=== PATIENT | female | born 1955 | race Caucasian/White ===

== ENCOUNTER → 2018-08-16 | Outpatient (CLI) | payer BC ==
[2018-08-16 12:26] LABS: Basophils # (auto) 0.1 uL; Basophils % (auto) 1.1 % (0.0-2.0); Eosinophils # (auto) 0.2 uL; Eosinophils % (auto) 3.1 % (0.0-7.0); Hematocrit 40.5 % (36.0-46.0); Hemoglobin 13.3 g/dL (12.2-16.2); Lymphocytes # (auto) 2.3 uL; Lymphocytes % (auto) 30.5 % (10.0-50.0); Mean Corpuscular Hemoglobin 30.9 pg (28.0-32.0); Mean Corpuscular Hgb Conc. 32.7 g/dL (32.0-36.0); Mean Corpuscular Volume 94.3 fL (80.0-100.0); Monocytes # (auto) 0.7 uL; Monocytes % (auto) 9.3 % (0.0-12.0); Neutrophils # (auto) 4.2 uL; Nucleated Red Blood Cells % 0.1 %; Platelet Count (auto) 311 10^3/uL (140-450); Red Cell Distribution Width 13.5 % (11.8-14.3); White Blood Cell 7.5 10^3/uL (4.4-10.8)
[2018-08-16 12:32] LABS: Albumin 3.8 g/dL (3.4-5.0); Potassium 3.8 mmol/L (3.5-5.1)
[2018-08-16 12:33] LABS: Urine Blood TRACE /uL (Negative); Urine Specific Gravity 1.011 (1.001-1.035)
[2018-08-16 12:39] LABS: Free T4 (Free Thyroxine) 0.85 ng/dL (0.89-1.76)
[2018-08-16 12:41] LABS: BUN/Creatinine Ratio 21.8; Bilirubin, Total 0.7 mg/dL (0.2-1.0); Calcium 8.9 mg/dL (8.5-10.1); Total Protein 7.8 g/dL (6.4-8.2)
== END | disposition home or self-care (01) ==
LOC: LAB 09:10
PROVIDERS: ATTEND Internal Medicine Cardiovascular Disease
DX: Z00.01 Encounter for general adult medical examination with abnormal findings (principal); E03.9 Hypothyroidism, unspecified; E55.9 Vitamin D deficiency, unspecified; E11.9 Type 2 diabetes mellitus without complications; D51.9 Vitamin B12 deficiency anemia, unspecified; N39.0 Urinary tract infection, site not specified
CPT/HCPCS: 36415; 80053; 80061; 81003; 82306; 82607; 83036; 84439; 84443; 85025; 87086

== ENCOUNTER → 2020-04-18 | Outpatient (CLI) | payer OTHER ==
[2020-04-18 12:06] LABS: Basophils # (auto) 0.1 10 ^3/uL (0-0.2); Basophils % (auto) 1.8 % (0.0-2.0); Eosinophils # (auto) 0.3 10 ^3/uL (0-0.8); Eosinophils % (auto) 3.9 % (0.0-7.0); Hematocrit 39.4 % (36.0-46.0); Hemoglobin 12.9 g/dL (12.2-16.2); Lymphocytes # (auto) 2.3 10 ^3/uL (0.4-5.4); Lymphocytes % (auto) 35.4 % (10.0-50.0); Mean Corpuscular Hemoglobin 30.3 pg (28.0-32.0); Mean Corpuscular Hgb Conc. 32.9 g/dL (32.0-36.0); Mean Corpuscular Volume 92.1 fL (80.0-100.0); Monocytes # (auto) 0.6 10 ^3/uL (0-1.3); Monocytes % (auto) 8.7 % (0.0-12.0); Neutrophils # (auto) 3.2 10 ^3/uL (1.6-8.6); Neutrophils % (auto) 50.2 % (37.0-80.0); Platelet Count (auto) 262 10^3/uL (140-450); Red Blood Cells 4.28 10^6/uL (4.0-5.20); Red Cell Distribution Width 13.5 % (11.8-14.3); White Blood Cell 6.5 10^3/uL (4.4-10.8)
[2020-04-18 12:14] LABS: Potassium 4.2 mmol/L (3.5-5.1)
[2020-04-18 12:21] LABS: Albumin 3.7 g/dL (3.4-5.0); BUN/Creatinine Ratio 24.7; Bilirubin, Direct 0.2 mg/dL (0-0.2); Bilirubin, Total 0.6 mg/dL (0.2-1.0); Calcium 8.8 mg/dL (8.5-10.1); Total Protein 7.2 g/dL (6.4-8.2)
[2020-04-18 15:55] LABS: Urine Blood Negative /uL (Negative); Urine Specific Gravity 1.016 (1.001-1.035)
== END | disposition home or self-care (01) ==
LOC: LAB 10:28
PROVIDERS: ATTEND Internal Medicine Cardiovascular Disease
DX: Z00.00 Encounter for general adult medical examination without abnormal findings (principal); E03.9 Hypothyroidism, unspecified; K90.9 Intestinal malabsorption, unspecified; N39.0 Urinary tract infection, site not specified; D51.9 Vitamin B12 deficiency anemia, unspecified; I10 Essential (primary) hypertension; E11.9 Type 2 diabetes mellitus without complications; E55.9 Vitamin D deficiency, unspecified; K75.9 Inflammatory liver disease, unspecified; D64.9 Anemia, unspecified; E78.5 Hyperlipidemia, unspecified; E78.00 Pure hypercholesterolemia, unspecified; Z79.899 Other long term (current) drug therapy
CPT/HCPCS: 36415; 80048; 80061; 80076; 81003; 82306; 83036; 84443; 85025

== ENCOUNTER → 2020-05-28 | Outpatient (CLI) | payer OTHER | END | disposition home or self-care (01) | LOC: Rad HDHVI 08:13 | PROVIDERS: ATTEND Internal Medicine Cardiovascular Disease | DX: R06.02 Shortness of breath (principal); E78.5 Hyperlipidemia, unspecified; J44.9 Chronic obstructive pulmonary disease, unspecified | CPT/HCPCS: 93306 ==

== ENCOUNTER → 2022-09-05 | Outpatient (CLI) | payer OTHER | END | disposition home or self-care (01) | LOC: Rad HDHVI 14:35 | PROVIDERS: ATTEND Internal Medicine Cardiovascular Disease | DX: I08.3 Combined rheumatic disorders of mitral, aortic and tricuspid valves (principal); I10 Essential (primary) hypertension; R06.02 Shortness of breath | CPT/HCPCS: 93306 ==

== ENCOUNTER → 2023-10-26 | Outpatient (CLI) | payer BC ==
[~2023-10-26] VITALS: Ht 157.5 cm; Wt 93.0 kg
[~2023-10-26] MED LIST: ADENOSINE 78 MG in GIVE UN-DILUTED 0 ML IV ONE; ADENOSINE 90 MG/30 ML INJ IV ONE
== END | disposition home or self-care (01) ==
LOC: Rad HDHVI 10:02
PROVIDERS: ATTEND Internal Medicine Cardiovascular Disease
DX: I08.0 Rheumatic disorders of both mitral and aortic valves (principal); E78.5 Hyperlipidemia, unspecified; R06.02 Shortness of breath; I11.9 Hypertensive heart disease without heart failure; E78.00 Pure hypercholesterolemia, unspecified; I25.10 Atherosclerotic heart disease of native coronary artery without angina pectoris; I25.2 Old myocardial infarction; Z82.49 Family history of ischemic heart disease and other diseases of the circulatory system; Z79.899 Other long term (current) drug therapy
CPT/HCPCS: 78452; 93005; 93306; 96374; 96375; A9500; J0153

== ENCOUNTER → 2024-01-20 | Outpatient (CLI) | payer BC, MEDICARE ==
[~2024-01-20] MED LIST changes: -ADENOSINE 78 MG in GIVE UN-DILUTED 0 ML IV ONE; -ADENOSINE 90 MG/30 ML INJ IV ONE; +ALPR0.5T7 PO; +ATOR20TA50 PO; +CARV3.1240 PO; +CLOP75TA28 PO; +LEVO50TA7 PO; +PAR20T PO; +QUET1TAB11 PO
[2024-01-20 09:05] VITALS: BP 111/58; PULSE 69; RESP 18; O2SAT 95
[2024-01-20 09:14] VITALS: BP 122/71; PULSE 68; RESP 18; O2SAT 96
== END | disposition home or self-care (01) ==
LOC: Rad HDHVI 08:54
PROVIDERS: ATTEND Internal Medicine Cardiovascular Disease
DX: Z01.818 Encounter for other preprocedural examination (principal); I25.5 Ischemic cardiomyopathy; I25.10 Atherosclerotic heart disease of native coronary artery without angina pectoris
CPT/HCPCS: 93005; G0463

== ENCOUNTER 2024-01-21 06:48 | Day surgery (SDC) | payer BC, MEDICARE ==
[2024-01-20 11:52] LABS: Basophils # (auto) 0.1 10 ^3/uL (0-0.2); Basophils % (auto) 1.3 % (0.0-2.0); Eosinophils # (auto) 0.4 10 ^3/uL (0-0.8); Hematocrit 39.8 % (36.0-46.0); Hemoglobin 12.8 g/dL (12.2-16.2); Lymphocytes # (auto) 2.7 10 ^3/uL (0.4-5.4); Mean Corpuscular Hemoglobin 29.7 pg (28.0-32.0); Mean Corpuscular Hgb Conc. 32.3 g/dL (32.0-36.0); Mean Corpuscular Volume 92.1 fL (80.0-100.0); Monocytes # (auto) 0.8 10 ^3/uL (0-1.3); Monocytes % (auto) 9.4 % (0.0-12.0); Neutrophils # (auto) 4.7 10 ^3/uL (1.6-8.6); Neutrophils % (auto) 53.3 % (37.0-80.0); Nucleated Red Blood Cells % 0.1 %; Red Blood Cells 4.33 10^6/uL (4.0-5.20); White Blood Cell 8.8 10^3/uL (4.4-10.8)
[2024-01-20 12:05] LABS: INR 1.03 (0.9-1.15); Partial Thromboplastin Time 30.5 SEC (24.5-34.5); Prothrombin Time 10.9 sec (9.3-11.8)
[2024-01-20 12:55] LABS: Anion Gap 6 (5-15); Carbon Dioxide 29 mmol/L (20-30); Chloride 105 mmol/L (98-107); Potassium 4.6 mmol/L (3.5-5.1); Sodium 140 mmol/L (136-145)
[2024-01-20 12:56] LABS: Calcium 10.2 mg/dL (8.5-10.1)
[2024-01-20 13:01] LABS: BUN/Creatinine Ratio 17.8 (10.0-20.0); Blood Urea Nitrogen 16 mg/dL (9-23); Glucose 104 mg/dL (74-106)
[~2024-01-21] VITALS: Ht 157.5 cm; Wt 96.2 kg
[2024-01-21] VITALS (8 sets, daily range): BP systolic 106–181; BP diastolic 72–98; PULSE 72–87; RESP 12–19; TEMP 97.1; O2SAT 91–94
[2024-01-21] MEDS ORDERED: IODIXANOL 320MG/ML 100ML BTL IV ONE (07:35)
[2024-01-21] MEDS ORDERED: IOHEXOL 350 MG/ML 100ML IJ ONE (07:35)
[2024-01-21] MEDS ORDERED: HEPARIN IN NS 1000Units/500mL 1,500 ML ONE (07:35)
[2024-01-21] MEDS ORDERED: LIDOCAINE 2%HCL (LOCAL ANESTH.) INJ 20ML MDV ONE (07:35)
[2024-01-21] MEDS ORDERED: ANGIOMAX 250 MG VIAL IV ONE (08:19)
[2024-01-21] MEDS ORDERED: fentaNYL CITRATE 100 MCG/2 ML VL ONE (08:19)
[2024-01-21] MEDS ORDERED: SODIUM CHL 0.9% 0 ML ONE (08:19)
[2024-01-21] MEDS ORDERED: MIDAZOLAM HCL 2MG/2ML 2ml VIAL (1mg/ml) ONE (08:19)
[2024-01-21] MEDS: cloNIDine HCL 0.1 MG TAB PO ONE (10:26)
[2024-01-21] MEDS: cloNIDine HCL 0.1 MG TAB ONE (10:26)
== END 2024-01-21 11:43 | disposition home or self-care (01) ==
LOC: CATH 06:48
PROVIDERS: ATTEND Internal Medicine Cardiovascular Disease
DX: R06.02 Shortness of breath (principal); I42.0 Dilated cardiomyopathy; E66.9 Obesity, unspecified; I25.10 Atherosclerotic heart disease of native coronary artery without angina pectoris; Z79.01 Long term (current) use of anticoagulants; Z87.891 Personal history of nicotine dependence; Z79.899 Other long term (current) drug therapy; Z98.890 Other specified postprocedural states
CPT/HCPCS: 36415; 80048; 85025; 85610; 85730; 93458; C1760; C1894; J1644; J2250; J3010; J7040; Q9967; 99152

== ENCOUNTER → 2024-07-11 | Outpatient (CLI) | payer BC, MEDICARE ==
[~2024-07-11] MED LIST changes: +SEMA1INJ SC
[2024-07-11 10:20] VITALS: BP 143/69; PULSE 69; RESP 16; O2SAT 95
[2024-07-11 10:34] VITALS: BP 143/75; PULSE 71; RESP 16; O2SAT 95
== END | disposition home or self-care (01) ==
LOC: Rad HDHVI 10:11
PROVIDERS: ATTEND Internal Medicine Cardiovascular Disease
DX: Z01.818 Encounter for other preprocedural examination (principal); I42.0 Dilated cardiomyopathy; I50.20 Unspecified systolic (congestive) heart failure
CPT/HCPCS: 71046; 93005; G0463

== ENCOUNTER 2024-07-14 06:59 | Day surgery (SDC) | payer BC, MEDICARE ==
[2024-07-11 13:24] LABS: Basophils # (auto) 0.1 10 ^3/uL (0-0.2); Basophils % (auto) 1.1 % (0.0-2.0); Eosinophils # (auto) 0.4 10 ^3/uL (0-0.8); Eosinophils % (auto) 4.4 % (0.0-7.0); Hematocrit 39.7 % (36.0-46.0); Lymphocytes % (auto) 36.1 % (10.0-50.0); Mean Corpuscular Hemoglobin 30.1 pg (28.0-32.0); Mean Corpuscular Hgb Conc. 32.7 g/dL (32.0-36.0); Mean Corpuscular Volume 91.8 fL (80.0-100.0); Monocytes # (auto) 0.8 10 ^3/uL (0-1.3); Monocytes % (auto) 10.1 % (0.0-12.0); Neutrophils % (auto) 48.3 % (37.0-80.0); Platelet Count (auto) 310 10^3/uL (140-450); Red Blood Cells 4.33 10^6/uL (4.0-5.20); Red Cell Distribution Width 14.6 % (11.8-14.3); White Blood Cell 8.3 10^3/uL (4.4-10.8)
[2024-07-11 13:38] LABS: INR 0.98 (0.9-1.15); Partial Thromboplastin Time 28.9 SEC (24.5-34.5); Prothrombin Time 10.4 sec (9.3-11.8)
[2024-07-11 14:15] LABS: Anion Gap 3 (5-15); Calcium 9.8 mg/dL (8.7-10.4); Carbon Dioxide 32 mmol/L (20-31); Chloride 105 mmol/L (98-107); Potassium 4.7 mmol/L (3.5-5.1); Sodium 140 mmol/L (136-145)
[2024-07-11 14:21] LABS: BUN/Creatinine Ratio 22.5 (10.0-20.0); Blood Urea Nitrogen 23 mg/dL (9-23); Glucose 93 mg/dL (74-106)
[~2024-07-14] VITALS: Ht 157.5 cm; Wt 94.3 kg
[~2024-07-14 06:59] MED LIST changes: -CLOP75TA28 PO; -SEMA1INJ SC
[2024-07-14] MEDS ORDERED: IODIXANOL 320MG/ML 100ML BTL IV ONE (12:32)
[2024-07-14] MEDS ORDERED: HYDROmorphone HCL 2 MG/ML VL/or syr ONE (12:51)
[2024-07-14] MEDS ORDERED: VANCOMYCIN HCL 1000 MG VL ONE (13:18)
[2024-07-14] MEDS ORDERED: LIDOCAINE 2%HCL (LOCAL ANESTH.) INJ 20ML MDV ONE (13:19)
[2024-07-14] MEDS ORDERED: MIDAZOLAM HCL 2MG/2ML 2ml VIAL (1mg/ml) ONE (13:19)
[2024-07-14] MEDS ORDERED: VANCOMYCIN 1GM/200ML PREMIX 200 ML IV ONE (13:19)
--- NOTE | 2024-07-14 14:35 | DVH ---
EXAM: XY CHEST PORTABLE CLINICAL HISTORY: S/P PACEMAKER TECHNIQUE: Single view of the chest WID: COMPARISON: None FINDINGS: Lines and tubes: Left-sided triple lead AICD is in place . over the Chest: Mild cardiomegaly with pulmonary vascular congestion. No pleural effusion, pneumothorax, or consolidation. The osseous structures are grossly intact. IMPRESSION: 1. Placement of left-sided triple lead AICD. 2. No pneumothorax. 3. Mild cardiomegaly with mild pulmonary vascular congestion.
--- NOTE | 2024-07-14 15:04 | DVHOP ---
DATE OF SURGERY: 07/14/2024 BI-V AICD IMPLANTATION WITH THE LEFT BUNDLE PACING INDICATIONS: The patient with dilated cardiomyopathy, depressed left ventricular ejection fraction, now to undergo the above-mentioned procedure. Risks and benefits were explained. The patient had conscious sedation and also venography was performed as well. DESCRIPTION OF PROCEDURE: The patient was prepped and draped in a sterile condition. 1% Xylocaine used to anesthetize the left subclavicular region. Using a Cook needle, the left subclavian vein was engaged, using Seldinger technique, a guidewire was then appropriately positioned. Similarly, 3 separate guidewires appropriately positioned. Then, using a 10 blade linear incision was made using blunt dissection and electrocautery, pocket was then dissected out. Then, using a 10.5-H[place]er sheath, right ventricular shock lead then appropriately positioned. Threshold parameters were obtained, lead was secured to the chest wall using 0 Ethibond. Using a 7-[place] Konger sheath, left ventricular pacing was performed. There were no complications. The patient tolerated the procedure well. Lead was secured to the chest wall using 0 Ethibond. Using a 7-H[place] Konger sheath, right atrial active fixation lead then appropriately positioned. Threshold parameters were obtained, lead was secured to the chest wall using 0 Ethibond. Pocket was irrigated with vancomycin saline solution. Pocket was closed using 3-0 Monoderm subcutaneous sutures followed by 3-0 Monoderm subcuticular sutures. There were no complications. The patient tolerated the procedure well. The patient had MRI compatible AICD Bi-V implanted is device is Acticor 7HF-T, model #574122, serial #[id number]. LV lead is Solia S60, model #251114, serial #[id number]. Right ventricular lead is Plexa ProMRI SD 65-18, model #293012, serial #[id number]. Right atrial lead is Solia S45, model #922123, serial #[id number]. Threshold parameters atrium, P-wave amplitude of 2.1 millivolts, threshold 1.2 volts at 0.4 milliseconds pulse duration, pacing impedance of 560 ohms. Right ventricular shock lead, R-wave amplitude of 18.1 millivolts, threshold of 0.4 volts at 0.4 milliseconds pulse duration, pacing impedance of 599 ohms, shock impedance of 55 ohms. Left ventricular/left bundle machine adjuster leader, R-wave amplitude of 7.8 millivolts, threshold of 1.1 volt at 0.4 milliseconds pulse duration, pacing impedance of 697 ohms. CONCLUSION: The patient has successful implantation of left bundle branch/LV lead Bi-V AICD implantation. [employer] production operator MRI compatible system. Chad Ríos MD SA/ASAF TID: [id number] RECEIPT: [id number]
--- NOTE | 2024-07-14 16:19 | DVHDS ---
DATE OF DISCHARGE: 07/14/2024 DISCHARGE DIAGNOSES: The patient with heart failure, [place] Heart Classification 3, systolic heart failure, chronic on acute. The patient underwent successful Bi-V AICD implantation. HOSPITAL COURSE: Clinically, the patient is stable. No chest pain, no shortness of breath, no hematoma. The patient will be discharged home. Follow up with me in 1 week. Stable at the time of discharge. ACTIVITY: As instructed. DIET: Will be 2 gram sodium diet. Chad Ríos MD SA/ASAF TID: [id number] RECEIPT: [id number]
--- NOTE | 2024-07-15 09:25 | ECG ---
[facility] Test Date: 2024-07-14 Test Time: 14:30:46 Pat Name: ELIE GARNETT Department: Room: Gender: F Hemstitcher: NIKOLAS : 1955 Requested By: NARCISO ARMENTA Order Number: [id number] Reading MD: Amanda Martinez Measurements Intervals [place] Rate: 73 P: 39 MD: 200 QRS: 6 QRSD: 80 T: 149 QT: 394 QTc: 434 Interpretive Statements Normal sinus rhythm Cannot rule out Anterior infarct , age undetermined ST & T wave abnormality, consider inferolateral ischemia Electronically Signed On 07-15-2024 15:52:52 PST by Amanda Martinez Please click the below link to view image of tracing.
--- NOTE | 2024-07-15 10:05 | ECG ---
[facility] Test Date: 2024-07-14 Test Time: 14:28:02 Pat Name: ELIE GARNETT Department: Room: Gender: F Associate Teacher: NIKOLAS : 1955 Requested By: NARCISO ARMENTA Order Number: [id number] Reading MD: Amanda Martinez Measurements Intervals [place] Rate: 72 P: 49 FL: 158 QRS: 18 QRSD: 120 T: 72 QT: 388 QTc: 424 Interpretive Statements Demand pacemaker, interpretation is based on intrinsic rhythm Sinus rhythm with occasional premature ventricular complexes Cannot rule out Anterior infarct , age undetermined Electronically Signed On 07-15-2024 15:52:51 PST by Amanda Martinez Please click the below link to view image of tracing.
--- NOTE | 2024-07-17 17:37 | DVHHP ---
ADMIT DATE: 07/14/2024 HISTORY OF PRESENT ILLNESS: The patient with history of coronary artery disease, now with left ventricular ejection fraction less than 20%. Echocardiography shows an EF around 30% with left heart catheterization showed EF around 30% with normal coronary anatomy. The patient is now to undergo Bi-V AICD implantation because of dyssynchrony noted. Furthermore, left bundle branch pacing would also be initiated. Denies any fever or chills. Denies any history of CVA. No history of seizure disorder. No history of any movement disorder. No visual disturbances, no hearing deficit. No history of any GI symptoms such as dysphagia, diarrhea, constipation, irritable bowel syndrome or inflammatory bowel disease. Denies any diarrhea. Denies any liver disease. Denies any GI symptomatology. No hematemesis, hemoptysis, hematochezia or hematuria. Lungs are clear. No history of any COPD. No previous history of myocardial infarction. Extremities, no peripheral vascular disease has been documented. PHYSICAL EXAMINATION: VITAL SIGNS: Blood pressure is 148/58, pulse of 50 and regular, O2 saturation 94% on room air. HEENT: Pupils are reactive. Funduscopic exam is benign. Sclerae anicteric. No exudates noted. No AV nicking noted. Tympanic membranes are clear and negative for any infection. Oral mucosa moist. Posterior pharynx without any exudate. NECK: Supple. No nuchal rigidity. No cervical adenopathy, no supraclavicular adenopathy. He does not have any axillary adenopathy as well. Carotid pulses are 2+ symmetrical, normal upstroke and contour. No JVD appreciated. Thyroid is within normal limits. PULMONARY: Clear to auscultation. No rhonchi, no wheezes, no egophony. CARDIOVASCULAR: Regular rate. PMI is diffuse laterally and inferiorly displaced. ABDOMEN: Soft, nontender, normal bowel sounds. SKIN: Unremarkable. EXTREMITIES: 1+ edema. ASSESSMENT AND PLAN: Thus, the patient with systolic heart failure, dilated cardiomyopathy, now to undergo Bi-V AICD implantation. Further recommendations after the implantation. Chad Ríos MD SA/ASAF/ALEX TID: [id number] RECEIPT: [id number]
== END 2024-07-14 16:15 | disposition home or self-care (01) ==
LOC: CATH 06:59
PROVIDERS: ATTEND Internal Medicine Cardiovascular Disease
DX: I11.0 Hypertensive heart disease with heart failure (principal); I50.22 Chronic systolic (congestive) heart failure; I42.0 Dilated cardiomyopathy; I25.5 Ischemic cardiomyopathy; I25.10 Atherosclerotic heart disease of native coronary artery without angina pectoris; R00.1 Bradycardia, unspecified; Z88.0 Allergy status to penicillin; Z88.5 Allergy status to narcotic agent; Z88.6 Allergy status to analgesic agent
CPT/HCPCS: 33225; 33249; 36415; 71045; 80048; 85025; 85610; 85730; 93005; C1769; C1882; C1894; C1895; C1898; J1171; J2250; J3370; Q9967; 99152; 99153

== ENCOUNTER → 2024-09-26 | Outpatient (CLI) | payer BC, MEDICARE | END | disposition home or self-care (01) | LOC: Rad HDHVI 08:04 | PROVIDERS: ATTEND Internal Medicine Cardiovascular Disease | DX: I11.0 Hypertensive heart disease with heart failure (principal); I50.23 Acute on chronic systolic (congestive) heart failure; E78.5 Hyperlipidemia, unspecified | CPT/HCPCS: 93306 ==